=== PATIENT | male | born 1960 | race Caucasian/White ===

== ENCOUNTER 2017-06-05 08:08 | Inpatient (IN) | payer OTHER ==
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
[~2017-06-05 08:08] MED LIST: POVIDONE-IODINE 20 ML in SODIUM CL IRRIG SOLUTION 500 ML IRR ONE; ROPIVACAINE 0.2% 80 MG, EPINEPHrine 0.2 MG, KETOROLAC TROMETHAMINE 30 MG in BAG 0 ML IU ONE; TRANEXAMIC ACID 2,080 MG in NS 100 ML IV ONE
[2017-06-05] MEDS ORDERED: DEXAMETHASONE 4 MG/ML VIAL IVP ONE (08:42)
[2017-06-05] MEDS ORDERED: FAMOTIDINE 20 MG TAB PO ONE (08:42)
[2017-06-05] MEDS ORDERED: ceFAZolin 2 GM/DEXTROSE 100 ML IV ONE (08:42)
[2017-06-05] MEDS ORDERED: ACETAMINOPHEN 325 MG TAB PO ONE (08:42)
[2017-06-05] MEDS ORDERED: LR 1,000 ML IV ONE (08:43)
[2017-06-05] MEDS ORDERED: ceFAZolin 1 GM/5 ML SYR ONE (09:08)
--- NOTE | 2017-06-05 09:42 | PDHPUP ---
History & Physical Update H&P update statement: This history and physical update is based on an assessment of the patient which was completed after admission or registration (within 24 hours), but prior to the surgery/procedure. H&P update: H&P reviewed & patient examined, no change in patient's condition since H&P completed
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
[2017-06-05] MEDS ORDERED: MIDAZOLAM 2 MG/2 ML VIAL IVP ONE (10:12)
[2017-06-05] MEDS ORDERED: PROPOFOL 200 MG/20 ML VIAL ONE ×4 (10:25→12:00)
[2017-06-05] MEDS ORDERED: fentaNYL 100 MCG/2 ML INJ ONE (10:26)
--- NOTE | 2017-06-05 10:29 | POSTANESTH ---
Post Anesthetic Evaluation Cardiovascular Status: Normal, Stable Respiratory Status: Normal, Stable Level of Consciousness/Mental Status: Can Participate in Eval Pain Control: Adequate, Prn Tx Ordered Nausea/Vomiting Control: Adequate, Prn Tx Ordered Complications Possibly Related to Anesthesia: None Noted
[2017-06-05] MEDS ORDERED: BUPIVACAINE 0.5% 30 ML SDV ONE (10:40)
[2017-06-05] MEDS ORDERED: PHENYLEPHRINE HCL 100 MCG/ML SYR ONE (10:59)
[2017-06-05] MEDS ORDERED: ONDANSETRON 4 MG/2 ML VIAL ONE (11:07)
[2017-06-05] MEDS ORDERED: PHENYLEPHRINE 10 MG/ML SDV ONE (11:15)
--- NOTE | 2017-06-05 12:33 | POSTOPPROG ---
Post Op Note Date of Operation: 06/05/17 Surgeon: Dread Fitzpatrick Sugar Controller: Ernesto Asencio/Dr. Artie Ogden Anesthesiologist: Dr. Chet Plascencia Anesthesia: IV Sedation, Spinal Pre-op Diagnosis: Right hip severe degenerative arthritis Post-op Diagnosis: Right hip severe degenerative arthritis Procedure: Right hip [place] hip resurfacing arthroplasty Inf/Abcess present in the surg proc area at time of surgery?: No EBL: 100-500
[2017-06-05] MEDS ORDERED: ONDANSETRON 4 MG/2 ML VIAL IVP PRN (12:34)
[2017-06-05] MEDS ORDERED: traMADol 50 MG TAB PO PRN (12:34)
[2017-06-05] MEDS ORDERED: METOCLOPRAMIDE 10 MG/2 ML VIAL IVP PRN (12:34)
[2017-06-05] MEDS ORDERED: LACTULOSE 20 GM/30 ML UDCUP PO PRN (12:34)
[2017-06-05] MEDS ORDERED: diphenhydrAMINE 25 MG CAP PO PRN (12:34)
[2017-06-05] MEDS ORDERED: TAPENTADOL HCL 50 MG TAB PO PRN (12:34)
[2017-06-05] MEDS ORDERED: KETOROLAC 30 MG/1 ML SDV IVP PRN (12:34)
[2017-06-05] MEDS ORDERED: TEMAZEPAM 15 MG CAP PO PRN (12:34)
[2017-06-05] MEDS ORDERED: MAGNESIUM HYDROXIDE 30 ML UDCUP PO PRN (12:34)
[2017-06-05] MEDS ORDERED: PROMETHAZINE HCL 25 MG SUPPR PR PRN (12:34)
[2017-06-05] MEDS ORDERED: BISACODYL 10 MG SUPP PR PRN (12:34)
[2017-06-05] MEDS ORDERED: CYCLOBENZAPRINE 10 MG TAB PO PRN (12:34)
[2017-06-05] MEDS ORDERED: ONDANSETRON DISINTEGRATING 4 MG TAB PO PRN (12:34)
[2017-06-05] MEDS ORDERED: DIPHENOXYLATE/ATROPINE LOMOTIL 1 TAB PO PRN (12:34)
[2017-06-05] MEDS ORDERED: oxyCODONE IR 5 MG TAB PO PRN (12:34)
[2017-06-05] MEDS ORDERED: POLYETHYLENE GLYCOL 3350 17 GM PKT PO PRN (12:34)
[2017-06-05] MEDS ORDERED: PROMETHAZINE HCL 25 MG/ML INJ IVP PRN (12:34)
[2017-06-05] MEDS ORDERED: LR 1,000 ML IV SCH (13:00)
[2017-06-05] MEDS ORDERED: fentaNYL 100 MCG/2 ML INJ IVP PRN (13:21)
[2017-06-05] MEDS ORDERED: NALOXONE HCL 0.4 MG/ML INJ IVP PRN (13:21)
--- NOTE | 2017-06-05 13:52 | GOP ---
[f rep st] OPERATIVE REPORT DATE OF OPERATION: 06/05/2017 SURGEON: Dread Fitzpatrick MD WORD PROCESSING SUPERVISOR: Ernesto Asencio CFA and Dr. Artie Ogden. ANESTHESIA: Combination of Marcaine, spinal, and IV sedation. ANESTHESIOLOGIST: Dr. Chet Plascencia MD. PREOPERATIVE DIAGNOSIS: Right hip severe degenerative arthritis. POSTOPERATIVE DIAGNOSIS: Right hip severe degenerative arthritis. PROCEDURE PERFORMED: Right hip Jim hip resurfacing arthroplasty. FINDINGS: ESTIMATED BLOOD LOSS: About 400 mL. DESCRIPTION OF PROCEDURE: The patient was given 2 g of IV Ancef preoperatively within 60 minutes of surgery. He also received IV tranexamic acid at a dose of 20 mg/kg. He was placed on the operating room table and given spinal anesthesia with Marcaine by Dr. Plascencia. He was then placed supine and given IV sedation. A Ulloa catheter was not used. He wore a MANISH stocking and SCD on the nonoperative leg. He was rolled to the left lateral decubitus position. An axillary roll was used, and all pressure points were carefully padded. The position was secured with the pegboard table attachment. I was careful to lock his pelvis in a vertical position. His perineum was isolated with plastic adhesive drapes. The right hip and right lower extremity were prepped with ChloraPrep. They were draped free using sterile sheets, stockinette, and Ioban plastic drape. The [employer] time-out was performed to verify the correct patient identity and the correct surgical side and site. The [place] time-out was also performed. I made a 7 to 8-inch straight oblique posterolateral hip skin incision. He was a large, muscular man requiring a [id number] incision. The subcutaneous tissues were sharply divided, and hemostasis was obtained using electrocautery. The fascia christoph was identified and split along the axis of its fibers. I then curved posteriorly and proximally and split the fascia of the gluteus kate and bluntly split the muscle fibers in line with their orientation. His sciatic nerve was identified and protected throughout the procedure. The Charnley self-retaining retractor was inserted. The external rotators and the posterior hip capsule were divided as separate layers at the base of the femoral neck, tagged, and reflected posteriorly. The gluteus kate tendon was divided and tagged in order to improve exposure and release tension on the sciatic nerve. His hip was dislocated posteriorly. I used a sizing gauge to check the diameter of the neck and concluded that 48 mm was the proper head size. I performed a circumferential capsulotomy. I was able to retract the femoral head anteriorly and superiorly, and hold it out of place with appropriate retractors. The remnant of his damaged labrum was completely excised. His superior labrum was ossified. The acetabulum was reamed sequentially up to 54 mm. I selected the Jim monoblock porous-coated acetabular component with an outside diameter of 54 mm. This was firmly impacted and was a very tight fit. I was careful to determine proper inclination and anteversion. I used the transverse acetabular ligament and other acetabular bony landmarks to help me properly orient the cup. Some small posterior-inferior osteophyte was removed with an osteotome and rongeur. I was careful to leave a lip of bone and capsule extending beyond the anterior- inferior lip of the metal cup. I then returned to preparation of the femoral head. Using appropriate jigs and guides, I inserted a guide pin into the head and neck. I was careful to position in such a way there would be no notching of the neck. The large sterile metal goniometer was used to check the neck shaft angle. I reamed over the guide pin and inserted the reaming guide. I then used a cylindrical reamer down to the head-neck junction. This was followed by the flat reamer and chamfer reamer. The head was sized for 48 mm. There was no impingement or damage to the neck. I drilled a small hole in the lesser trochanter and inserted a suction cannula to create negative pressure in the medullary canal. Small holes were drilled on the flattened chamfer surfaces of the prepared head for cement anchors. The head was thoroughly cleaned with the pulsating lavage and carefully dried. I used a CarboJet device to blow dry the cancellous surfaces. A single batch of Simplex cement with tobramycin was mixed. At about 50 seconds, I poured the liquid cement into the head component, inserted it onto the prepared femoral head and impacted it into place. Excess cement was removed before it hardened. The acetabulum was irrigated, cleaned, and inspected, and the hip was reduced. Stability and range of motion were checked. I placed my finger along the anterior aspect of the acetabular component and flexed the hip to 110 degrees. There was no anterior impingement. The suction cannula on the lesser trochanter was removed. The wound was thoroughly irrigated with a dilute Betadine solution. 40 mL of the joint anesthetic cocktail was injected into the capsule, the deep musculature, and the subcutaneous tissues along the skin edges. His sciatic nerve was reinspected and looked unharmed. The external rotators and the posterior hip capsule were repaired in separate layers with #2 FiberWire sutures through drill holes in the greater trochanter. The gluteus kate tendon was repaired with 2 interrupted [id number] #2 FiberWire sutures. The fascia christoph was repaired with 2 interrupted figure-of- eight #2 FiberWire sutures, followed by a running #2 barbed Ethicon Stratafix PDO suture. The subcutaneous tissues were closed with a running 0 barbed Ethicon Stratafix Monoderm suture. The skin was closed with a running 3-0 barbed Ethicon Stratafix Monoderm subcuticular suture. The skin edges were reapproximated and sealed with Dermabond glue. The wound was covered with a strip of Telfa, and everything was held in place with a piece of clear plastic Tegaderm. I used a [employer] Jim hip resurfacing system. The acetabular component was 54 mm in diameter and press-fit. The femoral head was 48 mm and cemented. He was awakened from anesthesia and rolled to the supine position on his gurney. A long-leg MANISH stocking and SCD were applied to the operative leg. He wore a stocking and SCD on the opposite leg during the procedure. An abduction pillow was placed between his knees. He was taken to PACU in satisfactory condition. There were no recognized intraoperative complications. The sponge and needle count were correct on 2 occasions. Ernesto Asencio and Dr. Artie Ogden acted as surgical assistants. Their assistance was a medical necessity for safe completion of the procedure. /[id number]/MODL MTDD
[2017-06-05] MEDS ORDERED: ceFAZolin 2 GM/DEXTROSE 100 ML IV SCH (14:00)
[2017-06-05] MEDS: TRANEXAMIC ACID 650 MG TAB PO SCH ×2 (16:54→23:13)
[2017-06-05] MEDS: ACETAMINOPHEN 325 MG TAB PO SCH ×2 (18:44→23:13)
[2017-06-05] MEDS: ceFAZolin 2 GM/DEXTROSE 100 ML IV SCH (18:45)
[2017-06-05] MEDS: ASPIRIN 325 MG TAB PO SCH (19:57)
[2017-06-05] MEDS: FAMOTIDINE 20 MG TAB PO SCH (19:57)
[2017-06-05] MEDS: SENNOSIDES/DOCUSATE SODIUM TAB PO SCH (19:57)
[2017-06-06] MEDS: ceFAZolin 2 GM/DEXTROSE 100 ML IV SCH (03:58)
[2017-06-06 04:02] VITALS: RESP 16
[2017-06-06 05:19] LABS: HEMATOCRIT 39.5 % (40.0-51.0); HEMOGLOBIN 13.8 g/dL (13.7-17.5)
[2017-06-06] MEDS: ACETAMINOPHEN 325 MG TAB PO SCH ×2 (06:05→11:31)
[2017-06-06] MEDS: TRANEXAMIC ACID 650 MG TAB PO SCH (06:06)
--- NOTE | 2017-06-06 07:31 | SOAPPROG ---
SOAP Progress Note Assessment/Plan: Assessment: Afebrile. Awake and alert Has been walking in [place]. Dsg is dry. H/H are good. Sciatic nerve intact. Films look good. Plan:Up with PT. HOme later today. 06/06/17 07:29 Objective: Vital Signs Temp Pulse Resp BP Pulse Ox 36.7 C 57 L 16 106/57 L 94 06/06/17 04:02 06/06/17 04:02 06/06/17 04:02 06/06/17 04:02 06/06/17 04:02 Laboratory Results 06/06/17 04:50 06/05/17 06/06/17 06/07/17 05:59 05:59 05:59 Intake Total 2446 Output Total 650 Balance 1796 ICD10 Worksheet Patient Problems: Problems Problem Status Onset Osteoarthritis of right hip Acute
--- NOTE | 2017-06-06 07:51 | GDS ---
[f rep st] DISCHARGE SUMMARY ADMISSION DIAGNOSIS: Right hip severe degenerative arthritis. DISCHARGE DIAGNOSIS: Right hip severe degenerative arthritis. OPERATION PERFORMED: 06/05/2017, a right hip Jim hip resurfacing arthroplasty. POSTOPERATIVE COMPLICATIONS: None. CONDITION ON DISCHARGE: Improved. DESCRIPTION OF HOSPITAL COURSE: The patient was admitted to the hospital on the morning of surgery. Under a combination of Marcaine, spinal, and IV sedation, he underwent a right hip [place] hip re surfacing arthroplasty. Postoperatively, he was treated with multimodal DVT prophylaxis, including a spirin and early mobilization. On the first postoperative day, his hemoglobin and hematocrit were 13 .8 and 39.5. He was seen by Physical Therapy and made excellent progress with ambulation and stairs. By the time of discharge, he was afebrile, independent walking and his dressing was clean and dry. DISPOSITION: The patient discharged to his home in [place]. He will go to outpatient physi nader therapy next week. He may progress to full weightbearing on the right as tolerated. Use MANISH sto ckings for 1 week. He has prescriptions for oxycodone and tramadol for pain control. Continue aspir in 325 mg p.o. daily for 21 days. I will see him back in the office on July 06, 2017. If there are any problems, he is to call me at the office. /[id number]/MODL
[2017-06-06] MEDS: ASPIRIN 325 MG TAB PO SCH (07:54)
[2017-06-06] MEDS: FAMOTIDINE 20 MG TAB PO SCH (07:54)
[2017-06-06] MEDS: SENNOSIDES/DOCUSATE SODIUM TAB PO SCH (07:55)
[2017-06-06 08:07] VITALS: BP 101/62; PULSE 52; TEMP 98.2; O2SAT 92
[2017-06-06] MEDS ORDERED: CYANO/VITAMIN B12 1000 MCG TAB PO SCH (09:00)
[2017-06-06] MEDS ORDERED: FERROUS SULFATE 140 MG TAB.ER PO SCH (09:00)
--- NOTE | 2017-06-06 14:29 | ASDISCHSUM ---
Discharge Information Plan Status:Home with No Needs Medically Cleared to Leave: Discharge Date:06/06/2017 12:54 PM CM D/C Disposition:Home, Routine, Self-Care ADT D/C Disposition:Home, Routine, Self-Care Projected Discharge Date:06/06/2017 12:54 PM Transportation at D/C: Discharge Delay Reason: Follow-Up Date:06/06/2017 12:54 PM Discharge Slot: Final Diagnosis: Placement Information Patient Contact Information Contact Name:MONIKA Relationship: Address:[address] [place] [address] Work Phone: City:[place] Alternate Phone: [facility]/Zip Code:[place] [address] Email: Financial Information Financial Class:Medicare Advantage Plans Primary Plan Desc:[employer] PPO MEDICARE Primary Plan Number:[id number] Secondary Plan Desc: Secondary Plan Number: Assessment Information [facility] CM Progress Note CM Note CM Note Notes: Therapies clear pt for home. Pt medically stable for d/c, no CM d/c needs identified. Date Signed: 06/06/2017 02:28 PM Electronically Signed By:DARRIUS Arias Intervention Information
== END 2017-06-06 12:54 | disposition home or self-care (01) | DRG 470 ==
LOC: F3N 08:08
PROVIDERS: ADMIT Orthopaedic Surgery; ATTEND Orthopaedic Surgery
PROC: 0SU90BZ Supplement Right Hip Joint with Resurfacing Device, Open Approach (ICD-10-PCS; principal; 2017-06-05 09:45)
DX: M16.11 Unilateral primary osteoarthritis, right hip (principal); K21.9 Gastro-esophageal reflux disease without esophagitis
CPT/HCPCS: 97110-GP; 97116-GP; 97161-GP; 97165-GO; C1713; C1769; J0171; J0690; J1100; J1885; J2250; J2370; J2405; J2704; J2795; J3010